=== PATIENT | male | born 1970 | race African-American/Black ===

== ENCOUNTER 2020-05-24 12:44 | Emergency (ER) | payer SELFPAY ==
[~2020-05-24] VITALS: Ht 182.9 cm; Wt 110.7 kg
[2020-05-24 12:54] VITALS: Ht 182.9 cm; Wt 110.7 kg
[2020-05-24] MEDS ORDERED: NAPROXEN SOD550 MG PO (13:52)
[2020-05-24 14:07] VITALS: BP 130/79
== END 2020-05-24 14:07 | disposition home or self-care (01) ==
LOC: ED 12:44
DX: S63.602A Unspecified sprain of left thumb, initial encounter (principal); W20.8XXA Other cause of strike by thrown, projected or falling object, initial encounter; Y93.89 Activity, other specified; Y92.89 Other specified places as the place of occurrence of the external cause; Y99.8 Other external cause status